=== PATIENT | male | born 1985 | race Caucasian/White ===

== ENCOUNTER 2022-02-25 19:52 | Emergency (ER) | payer SELFPAY ==
[~2022-02-25] VITALS: Ht 170.2 cm; Wt 80.0 kg
[2022-02-25] MEDS ORDERED: LORAZEPAM 1MG TABLET PO ONE (21:30)
[2022-02-25 21:47] LABS: BASOPHILS % 0.2 % (0.0-2.0); EOSINOPHILS % 1.8 % (0.0-5.0); HEMATOCRIT. 46.9 % (42.0-52.0); HEMOGLOBIN. 16.7 g/dL (14.0-18.0); LYMPHOCYTES % 34.8 % (20.0-50.0); MEAN CORPUSCULAR HEMOGLOBIN 31.8 pg (28.0-32.0); MEAN CORPUSCULAR VOLUME 89.6 fL (80.0-94.0); MEAN PLATELET VOLUME 8.4 fl (7.4-10.4); MONOCYTES % 6.3 % (2.0-8.0); NEUTROPHILS % 56.9 % (40.0-76.0); PLATELET 167 x1000/uL (130-400); RED BLOOD CELL COUNT 5.24 mill/uL (4.7-6.1); RED CELL DISTRIBUTION WIDTH 14.2 % (11.6-14.6)
[2022-02-25 21:59] LABS: CHLORIDE 102 mEq/L (98-107)
[2022-02-25 23:37] VITALS: BP 129/96
== END 2022-02-25 23:40 | disposition home or self-care (01) ==
LOC: ER 19:52
DX: F41.9 Anxiety disorder, unspecified (principal); R45.0 Nervousness; F41.0 Panic disorder [episodic paroxysmal anxiety]; E11.9 Type 2 diabetes mellitus without complications; I10 Essential (primary) hypertension
CPT/HCPCS: 36415; 80053; 84484; 85025; 99283

== ENCOUNTER 2025-01-02 10:24 | Inpatient (IN) | payer MEDICAID ==
[~2025-01-02] VITALS: Ht 172.7 cm; Wt 91.6 kg
[2025-01-02] MEDS ORDERED: METF-1149 PO (10:29)
[2025-01-02 10:30] VITALS: O2SAT 100
[2025-01-02 11:24] LABS: CLARITY URINE CLOUDY (CLEAR); COLOR URINE DARK YELLOW (YELLOW); GLUCOSE URINE NEGATIVE (NEGATIVE); KETONES URINE TRACE (NEGATIVE); LEUKOCYTE ESTERASE URINE TRACE (NEGATIVE); NITRITE URINE NEGATIVE (NEGATIVE); OCCULT BLOOD URINE NEGATIVE (NEGATIVE); PH URINE 7.0 (4.5-8.0); PROTEIN URINE 3+ (NEGATIVE); SPECIFIC GRAVITY URINE 1.020 (1.005-1.030); UROBILINOGEN URINE 1.0 E.U./dL (0.2-1.0)
[2025-01-02] MEDS: SODIUM CHLORIDE 0.9% 1,000 ML IV ONE ×2 (11:25→12:18)
[2025-01-02] MEDS: ONDANSETRON HCL 4MG/2ML INJ IV ONE (11:26)
[2025-01-02] MEDS: MORPHINE SULFATE 4 MG/ML INJ (FOR IV/IM USE) IV ONE (11:26)
[2025-01-02 11:27] LABS: BASOPHILS % 0.4 % (0.0-2.0); EOSINOPHILS % 0.5 % (0.0-5.0); HEMATOCRIT. 45.4 % (42.0-52.0); HEMOGLOBIN. 16.2 g/dL (14.0-18.0); LYMPHOCYTES % 19.6 % (20.0-50.0); MEAN PLATELET VOLUME 7.6 fl (7.4-10.4); MONOCYTES % 6.1 % (2.0-8.0); NEUTROPHILS % 73.4 % (40.0-76.0); PLATELET 184 x1000/uL (130-400); RED BLOOD CELL COUNT 4.99 mill/uL (4.7-6.1); RED CELL DISTRIBUTION WIDTH 14.2 % (11.6-14.6)
[2025-01-02 11:33] LABS: BG BASE EXCESS 1.8 mmol/L (-2.0-3.0); BG CARBOXYHEMOGLOBIN 1.5 % (0.5-1.5); BG DEOXYHEMOGLOBIN 3.8 % (0.0-5.0); BG FRACTION INSPIRED OXYGEN 21; BG HCO3 ACT 23.9 mmol/L (21.0-28.0); BG METHEMOGLOBIN 0.3 % (0.5-1.5); BG OXYGEN SATURATION 96.1 % (94.0-98.0); BG OXYHEMOGLOBIN 94.4 % (94.0-98.0); BG PCO2 31.2 mmHg (35.0-48.0); BG PH 7.502 (7.350-7.450); BG PO2 79.1 mmHg (83.0-108.0); BG SAMPLE SITE RIGHT BRACHIAL; BG TOTAL HEMOGLOBIN 16.4 g/dL (13.5-17.5); BG VENT MODE ROOM AIR
[2025-01-02 11:46] LABS: MUCUS URINE 1+ /lpf (NONE/TRACE)
[2025-01-02 11:47] LABS: BACTERIA URINE 1+; SQUAMOUS EPITHELIAL CELL URINE NONE SEEN /lpf (RARE/1+)
[2025-01-02 11:48] LABS: WBC URINE 0-2 /hpf (0-2)
[2025-01-02 11:49] LABS: RBC URINE NONE SEEN /hpf (0-2)
[2025-01-02 11:50] LABS: CREATININE 0.7 mg/dL (0.6-1.3)
[2025-01-02 11:51] LABS: UREA NITROGEN BLOOD 6 mg/dL (9-23)
[2025-01-02] MEDS: HYDRALAZINE 20MG/ML VIAL IV ONE (12:15)
[2025-01-02 18:00] VITALS: BP 151/116; PULSE 88; RESP 18; TEMP 36.6; O2SAT 98
[2025-01-02 18:02] VITALS: BP 151/116; PULSE 115; RESP 18; TEMP 36.6404
[2025-01-02] MEDS ORDERED: DEXTROSE 50% WATER 50ML SYRINGE IV PRN (18:15)
[2025-01-02] MEDS ORDERED: ONDANSETRON HCL 4MG/2ML INJ IV PRN (18:15)
[2025-01-02 20:00] VITALS: BP 149/107; PULSE 108; RESP 17; TEMP 36.8; O2SAT 96
[2025-01-02] MEDS: BLOOD SUGAR DIAGNOSTIC STRIP TEST SCH (21:00)
[2025-01-02] MEDS: INSULIN LISPRO 100 UNITS/ML SUBCUT SCH (21:00)
[2025-01-02 21:03] LABS: *AMPHETAMINES SCREEN URINE NEGATIVE (NEGATIVE); *BARBITURATES SCREEN URINE NEGATIVE (NEGATIVE); *BENZODIAZEPINES SCREEN URINE NEGATIVE (NEGATIVE); *COCAINE SCREEN URINE NEGATIVE (NEGATIVE); METHADONE URINE SCREEN NEGATIVE (NEGATIVE); OPIATES URINE SCREEN PRESUMPTIVE POSITIVE (NEGATIVE)
[2025-01-02 21:04] LABS: CANNABINOID URINE SCREEN NEGATIVE (NEGATIVE); ECSTASY MDMA SCREEN URINE NEGATIVE (NEGATIVE); PHENCYCLIDINE URINE SCREEN NEGATIVE (NEGATIVE)
[2025-01-03 00:17] VITALS: BP 134/104; PULSE 105; RESP 16; TEMP 36.6; O2SAT 98
[2025-01-03 04:00] VITALS: BP 152/100; PULSE 83; RESP 18; TEMP 36.2; O2SAT 98
[2025-01-03 08:00] VITALS: BP 155/103; PULSE 90; RESP 18; TEMP 36.6; O2SAT 99
[2025-01-03] MEDS: ACETAMINOPHEN 325MG TABLET PO PRN (08:20)
[2025-01-03] MEDS: ASPIRIN 81MG TABLET PO SCH (08:21)
[2025-01-03 12:00] VITALS: BP 155/100; PULSE 88; RESP 18; TEMP 36.5; O2SAT 99
[2025-01-03] MEDS: REGADENOSON 0.4 MG/5 ML IV SCH (12:30)
[2025-01-03] MEDS: METOPROLOL TARTRATE 25MG TABLET PO SCH (13:04)
[2025-01-03] MEDS: GABAPENTIN 300MG CAPSULE PO NR (13:04)
[2025-01-03 14:28] LABS: TROPONIN I HIGH SENSITIVITY < 4 ng/L (3.0-53)
[2025-01-03] MEDS: AMLODIPINE 10MG TABLET PO SCH (15:26)
[2025-01-03 16:00] VITALS: BP 123/95; PULSE 90; RESP 18; TEMP 36.6; O2SAT 99
[2025-01-03 20:00] VITALS: BP 150/106; PULSE 100; RESP 17; TEMP 36.5; O2SAT 99
[2025-01-04] VITALS: BP 122/88; PULSE 91; RESP 18; TEMP 36.4; O2SAT 97
[2025-01-04 04:00] VITALS: BP 127/90; PULSE 96; RESP 18; TEMP 36.4; O2SAT 99
[2025-01-04] MEDS ORDERED: DEXTROSE 50% WATER 50ML SYRINGE IV PRN (06:15)
[2025-01-04] MEDS: BLOOD SUGAR DIAGNOSTIC STRIP TEST SCH (06:45)
[2025-01-04] MEDS: INSULIN LISPRO 100 UNITS/ML SUBCUT SCH (06:59)
[2025-01-04 08:00] VITALS: BP 119/81; PULSE 78; RESP 16; TEMP 36.4; O2SAT 99
[2025-01-04] MEDS ORDERED: REGADENOSON 0.4 MG/5 ML IV ONE (08:00)
[2025-01-04] MEDS ORDERED: DILT240C91 MT (10:13)
[2025-01-04 12:00] VITALS: BP 112/86; PULSE 98; RESP 16; TEMP 35.6; O2SAT 98
[2025-01-04 15:33] VITALS: BP 127/91; PULSE 105; RESP 17; TEMP 96.3
[2025-01-04] MEDS ORDERED: GABAPENTIN 300MG CAPSULE PO SCH (22:00)
== END 2025-01-04 15:55 | disposition home or self-care (01) | DRG 198 ==
LOC: ER 10:24 → 5WST 13:15 → EDBEDREQTM 13:23 → EDBEDREQ 13:23
PROVIDERS: ADMIT Internal Medicine; ATTEND Internal Medicine
PROC: 4A02XM4 Measurement of Cardiac Total Activity, External Approach (ICD-10-PCS; principal; 2025-01-04)
PROC: 3E033HZ Introduction of Radioactive Substance into Peripheral Vein, Percutaneous Approach (ICD-10-PCS; 2025-01-04)
DX: I20.0 Unstable angina (principal); I16.0 Hypertensive urgency; E11.65 Type 2 diabetes mellitus with hyperglycemia; I10 Essential (primary) hypertension; E66.9 Obesity, unspecified; E11.40 Type 2 diabetes mellitus with diabetic neuropathy, unspecified; F41.9 Anxiety disorder, unspecified; Z79.84 Long term (current) use of oral hypoglycemic drugs; Z79.899 Other long term (current) drug therapy; Z68.30 Body mass index [BMI] 30.0-30.9, adult; Z91.148 Patient's other noncompliance with medication regimen for other reason; R00.0 Tachycardia, unspecified
CPT/HCPCS: 36415; 36600; 71045; 78452; 80048; 80305; 81003; 82010; 82375; 82805; 82962; 83036; 84484; 85025; 85379; 93005; 93017; 93306; 96361; 96374; 96375; 99285; A9500; J0360; J2270; J2405; J2785; J7030

== ENCOUNTER 2025-02-01 18:05 | Emergency (ER) | payer OTHER, MEDICAID ==
[~2025-02-01] VITALS: Ht 175.3 cm; Wt 82.0 kg
[~2025-02-01 18:05] MED LIST: DILT240C91 MT; METF-1149 PO
[2025-02-01 18:12] VITALS: TEMP 98.2; O2SAT 100
[2025-02-01] MEDS ORDERED: LIDO700A30 TP (21:46)
[2025-02-01] MEDS ORDERED: CYCL5TAB3 MT (21:46)
[2025-02-01] MEDS ORDERED: IBUP-2030 MT (21:46)
[2025-02-01 22:10] VITALS: BP 150/99; PULSE 105; RESP 12; O2SAT 100
[2025-02-01] MEDS: LIDOCAINE 5% PATCH TOP STA (22:10)
[2025-02-01] MEDS: CYCLOBENZAPRINE 10MG TABLET PO ONE (22:10)
[2025-02-01] MEDS: KETOROLAC 30MG/ML VIAL IM ONE (22:10)
== END 2025-02-01 22:11 | disposition home or self-care (01) ==
LOC: ER 18:05
DX: M25.512 Pain in left shoulder (principal); I10 Essential (primary) hypertension; E11.9 Type 2 diabetes mellitus without complications; F41.9 Anxiety disorder, unspecified; Z79.899 Other long term (current) drug therapy; V43.52XA Car driver injured in collision with other type car in traffic accident, initial encounter; Y93.89 Activity, other specified; Y92.410 Unspecified street and highway as the place of occurrence of the external cause; Y99.8 Other external cause status
CPT/HCPCS: 99283; 73030; 96372; J1885